=== PATIENT | male | born 1985 | race Caucasian/White ===

== ENCOUNTER 2018-04-10 01:30 | Emergency (ER) | payer SELFPAY ==
[~2018-04-10] VITALS: Ht 175.3 cm; Wt 93.0 kg
[2018-04-10 01:40] VITALS: BP 172/94
--- NOTE | 2018-04-10 01:48 | NUR ---
PT AMBULATED TO LOBBY WITH VSS. ACCOMPANIED BY .
--- NOTE | 2018-04-10 04:08 | NUR ---
PT TO ER BED 3
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
--- NOTE | 2018-04-10 05:20 | NUR ---
DR. DECKER EVALUATING AT BEDSIDE
[2018-04-10] MEDS ORDERED: ACETAMINOPHEN EXTRA STRENGTH 500 MG TAB PO ONE (05:45)
--- NOTE | 2018-04-10 06:43 | NUR ---
PT RESTING IN BED COMFORTABLY. NAD. RR EVEN/UNLABORED. AT BEDSIDE
[2018-04-10 07:07] VITALS: BP 145/82
== END 2018-04-10 07:07 | disposition home or self-care (01) ==
LOC: MED 01:30
DX: R51 Headache (principal)
CPT/HCPCS: 70450; 99284

== ENCOUNTER 2018-12-10 20:38 | Emergency (ER) | payer SELFPAY ==
[~2018-12-10] VITALS: Ht 175.3 cm; Wt 95.7 kg
[2018-12-10 20:47] VITALS: BP 136/78
--- NOTE | 2018-12-10 20:53 | NUR ---
PT AMBULATED BACK TO [facility], EKG WAS DONE AND SEEN BY DIANN
--- NOTE | 2018-12-10 22:03 | NUR ---
PTAMBULATED TO BED #7
[2018-12-10] MEDS ORDERED: MORPHINE SULFATE 2 MG/ML SYR IVP ONE (22:05)
[2018-12-10] MEDS ORDERED: ASPIRIN 81 MG TAB.CHEW PO ONE (22:05)
[2018-12-10] MEDS ORDERED: ONDANSETRON 4 MG ODT PO ONE (22:05)
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
[2018-12-10 23:07] VITALS: BP 136/78
== END 2018-12-10 23:07 | disposition home or self-care (01) ==
LOC: MED 20:38
DX: M94.0 Chondrocostal junction syndrome [Tietze] (principal); M54.12 Radiculopathy, cervical region; I10 Essential (primary) hypertension
CPT/HCPCS: 71045; 93005; 99283; Q0092